=== PATIENT | male | born 1990 | race Caucasian/White ===

== ENCOUNTER 2023-04-23 19:50 | Emergency (ER) | payer OTHER, SELFPAY ==
[2023-04-23 19:56] VITALS: BP 141/83; PULSE 116; RESP 18; TEMP 37.8; O2SAT 96; BMI 25.8
--- NOTE | 2023-04-23 20:30 | CRLHL7_ITS ---
For Patients: As a result of the Century Cures Act, medical imaging exams and procedure reports are released immediately into your electronic medical record. You may view this report before your referring provider. If you have questions, please contact your health care provider. INDICATION: Right lower quadrant pain TECHNIQUE: Axial images were obtained from the diaphragm to the pubic symphysis. Reformats were obtained in the coronal and sagittal plane. IV Contrast: 89 cc Isovue 370 Oral Contrast: None COMPARISON: None. FINDINGS: Lower chest: Unremarkable. Liver: Unremarkable. Normal in size and attenuation. No masses. Gallbladder and bile ducts: Unremarkable. No stones or inflammation. No biliary dilatation. Spleen: Unremarkable. Normal in size without mass. Pancreas: Unremarkable. No mass or inflammation. Adrenal glands: Unremarkable. No nodules. Kidneys: Unremarkable. No masses, stones, or hydronephrosis. Vasculature: Unremarkable. GI tract: The stomach is unremarkable. No dilated loops of large or small intestine. Normal appendix. Pelvis: Unremarkable. Bones: Unremarkable for age. IMPRESSION: Unremarkable abdomen and pelvis CT. No dilated bowel or localized inflammation. Please note that all CT scans at this facility use dose modulation, iterative reconstruction, and/or weight-based dosing when appropriate to reduce radiation dose to as low as reasonably achievable. Dictated by Hermann Espana MD @ 04/23/2023 9:02:11 PM (Electronically Signed)
--- NOTE | 2023-04-23 20:31 | ED_ITS ---
HPI - Abdominal Pain General Time Seen by Provider: 20:31 Date Seen: 04/23/23 Chief Complaint: Abdominal Pain Stated Complaint: pain in waist/stomach Time Seen by Provider: 04/23/23 20:09 Source: patient, RN notes reviewed and old records reviewed Mode of arrival: ambulatory Limitations: no limitations History of Present Illness HPI narrative: 32-year-old male who comes in today with abdominal pain for the last 4 days. Low abdomen, somewhat migratory. Denies nausea, vomiting, diarrhea, urinary symptoms, fever, chills, cough, runny nose. Has not taken anything for this. Related Data Allergies Allergy/AdvReac Type Severity Reaction Status Date / Time No Known Drug Allergies Allergy Verified 04/23/23 20:08 Exam Narrative: Exam Narrative: General: Well-developed and well-nourished, no acute distress Head: Atraumatic and normocephalic Eyes: Pupils are equal reactive, extraocular motions intact, conjunctiva clear ENT: External nose and ears are normal, posterior pharynx without erythema or exudate Neck: No midline cervical tenderness, full spontaneous range of motion the neck, trachea midline, no adenopathy Heart: Regular rate and rhythm no murmurs or thrills Lungs: Clear to auscultation bilaterally without wheezes or crackles Abdomen: Soft, right lower quadrant and right mid abdominal tenderness, nondistended with active bowel sounds Musculoskeletal: No tenderness, deformity, or edema Neurologic: Awake, alert, and oriented x3, no gross focal neurologic deficits, cranial nerves intact as tested Psych: Mood and affect are appropriate Skin: No rashes Const: Vital Signs, click to edit/add: Vital Signs - 24 hr 04/23/23 19:56 Temperature 100.0 F H Pulse Rate [Left P ulse Oximeter] 116 H Respiratory Rate 18 Blood Pressure [Ri ght Upper Arm] 141/83 H Pulse Oximetry 96 Oxygen Delivery Me thod Room Air Course Course ED Course: Patient seen and examined, prior records reviewed. Patient presents today with low abdominal pain going on for the last several days. Migratory but mostly on the right side. He does have some mild right lower quadrant right lateral abdominal tenderness. He is also tachycardic with borderline fever. Labs and CT scan are ordered, fluids and Toradol ordered Reevaluation(s) Time of Reevaluation #1: 21:05 Reevaluation #1: CT independently interpreted by me negative for acute findings. Labs ordered and independently interpreted by me with normal CBC, no leukocytosis, normal lactate. Time of Reevaluation #2: 21:37 Reevaluation #2: Labs and middle interpreted by me with normal basic metabolic panel, normal lipase, normal hepatic panel, normal urinalysis. No definite etiology for patient's abdominal pain found today but with migratory pain, minimal tenderness, and reassuring laboratory and radiographic evaluation today, no acute emergent conditions found. Stable for discharge. Vital Signs Vital signs: Initial Vital Signs Temperature 100.0 F H 04/23/23 19:56 Temperature Source Temporal Artery Scan 04/23/23 19:56 Pulse Rate 116 H 04/23/23 19:56 Pulse Rhythm Regular 04/23/23 19:56 Respiratory Rate 18 04/23/23 19:56 Blood Pressure 141/83 H 04/23/23 19:56 Blood Pressure Mean 102 04/23/23 19:56 Blood Pressure Position Sitting 04/23/23 19:56 Pulse Oximetry 96 04/23/23 19:56 Oxygen Delivery Method Room Air 04/23/23 19:56 Vital Signs Temperature 100.0 F H 04/23/23 19:56 Pulse Rate 116 H 04/23/23 19:56 Respiratory Rate 18 04/23/23 19:56 Blood Pressure 141/83 H 04/23/23 19:56 Pulse Oximetry 96 04/23/23 19:56 Oxygen Delivery Method Room Air 04/23/23 19:56 Temperature 100.0 F H 04/23/23 19:56 Pulse Rate 116 H 04/23/23 19:56 Respiratory Rate 18 04/23/23 19:56 Blood Pressure 141/83 H 04/23/23 19:56 Pulse Oximetry 96 04/23/23 19:56 Oxygen Delivery Method Room Air 04/23/23 19:56 MDM - Abdominal Pain Lab Data Labs: Lab Results 04/23/23 04/23/23 Range/Units 20:30 20:56 WBC 5.25 (4.50-11.00) K/uL RBC 5.26 (4.30-5.90) m/uL Hgb 15.9 (13.5-17.5) gm/dL Hct 47.3 (37.0-53.0) % MCV 90 (80-100) fL MCH 30 (26-34) pg MCHC 34 (32-36) gm/dL RDW Coeff of Danielle 11.6 (11.5-15.5) % Plt Count 182 (140-440) K/uL Neut % (Auto) 58.4 (42.0-72.0) % Lymph % (Auto) 29.1 (20-44) % [place] % (Auto) 8.8 (0.0-11.0) % Eos % (Auto) 2.5 (0.0-7.0) % Baso % (Auto) 1.0 (0.0-3.0) % Neut # (Auto) 3.07 (1.7-7.0) K/uL Lymph # (Auto) 1.53 (0.90-2.90) K/uL [place] # (Auto) 0.50 (0.00-0.90) K/UL Eos # (Auto) 0.13 (0.00-0.50) K/uL Baso # (Auto) 0.05 (0.00-0.30) K/uL Abs Immat Gran (auto) 0.01 (0.00-0.30) K/uL Imm/Tot Granulo (auto) 0.2 % Sodium 138 (135-149) mmol/L Potassium 4.1 (3.6-5.1) mmol/L Chloride 103 (96-114) mmol/L Carbon Dioxide 27 (20-32) mmol/L Anion Gap 8 (7-15) mEq/L BUN 13 (5-24) mg/dL Creatinine 1.2 (0.5-1.5) mg/dL Estimated Creat Clear 91.25 Estimated GFR 82 ml/min Glucose 101 (60-115) mg/dL Lactate 0.9 (0.5-1.9) mmol/L Calcium 9.5 (8.4-10.6) mg/dL Total Bilirubin 0.6 (0.1-1.5) mg/dL Direct Bilirubin 0.1 (0.0-0.5) mg/dL AST 32 (12-35) U/L ALT 25 (4-50) U/L Alkaline Phosphatase 53 (40-150) U/L Total Protein 7.7 (6.0-8.3) g/dL Albumin 4.8 (3.3-5.0) g/dL Lipase 151 (23-300) U/L Urine Color Yellow (Yellow) Urine Appearance Clear (Clear) Urine pH 6.0 (5.0-8.5) Ur Specific [place] 1.015 (1.000-1.030) Urine Protein Negative (Negative) Urine Glucose (UA) Negative (Negative) Urine Ketones 1+ A (Negative) Urine Blood Negative (Negative) Urine Nitrite Negative (Negative) Urine Bilirubin Negative (Negative) Urine Urobilinogen 0.2 (0.2-1.0) Ur Leukocyte Esterase Negative (Negative) Urine RBC 2-5 A (0-2) Urine WBC 2-5 (0-5) Ur Squamous Epith Cells None (None-Few) Urine Bacteria None (None) Discharge Plan Discharge Clinical Impression: Migratory abdominal pain Patient Disposition: Home, Self-Care Condition: Stable Instructions: Acute Abdominal Pain (DC) Additional Instructions: Liquid diet for 24 hours Tylenol or ibuprofen as needed for pain Activity Level: Activity as Tolerated Discharge Diet: Regular Follow Up/Referrals: Provider,Not a Local [Primary Care Provider] - Stand Alone Forms: Fatigue Scienceth Info Instructions
[2023-04-23 20:46] LABS: Lactate* 0.9 mmol/L (0.5-1.9)
[2023-04-23 21:01] LABS: Basophils Absolute Auto 0.05 K/uL (0.00-0.30); Eosinophils Absolute Auto 0.13 K/uL (0.00-0.50); Eosinophils Percent Auto 2.5 % (0.0-7.0); Hematocrit 47.3 % (37.0-53.0); Hemoglobin* 15.9 gm/dL (13.5-17.5); Immature Granulocytes Abs Auto 0.01 K/uL (0.00-0.30); Immature Granulocytes Pct Auto 0.2 %; Lymphocytes Absolute Auto 1.53 K/uL (0.90-2.90); Lymphocytes Percent Auto 29.1 % (20-44); Mean Corpuscular HGB Conc 34 gm/dL (32-36); Mean Corpuscular Hemoglobin 30 pg (26-34); Mean Corpuscular Volume 90 fL (80-100); Monocytes Percent Auto 8.8 % (0.0-11.0); Neutrophils Absolute Auto 3.07 K/uL (1.7-7.0); Neutrophils Percent Auto 58.4 % (42.0-72.0); Platelet Count* 182 K/uL (140-440); RDW Coefficient of Variation % 11.6 % (11.5-15.5); Red Blood Count 5.26 m/uL (4.30-5.90); Slide Review Reflex No; White Blood Count* 5.25 K/uL (4.50-11.00)
[2023-04-23 21:03] LABS: Appearance Urine Clear (Clear); Bilirubin Urine Negative (Negative); Blood Urine Negative (Negative); Color Urine Yellow (Yellow); Glucose Urine Negative (Negative); Ketones Urine 1+ (Negative); Leukocyte Esterase Urine Negative (Negative); Nitrite Urine Negative (Negative); Protein Urine Negative (Negative); Specific Gravity Urine 1.015 (1.000-1.030); Urobilinogen Urine 0.2 (0.2-1.0)
[2023-04-23 21:22] LABS: Albumin* 4.8 g/dL (3.3-5.0); Chloride* 103 mmol/L (96-114)
[2023-04-23 21:23] LABS: Potassium* 4.1 mmol/L (3.6-5.1); Sodium* 138 mmol/L (135-149)
[2023-04-23 21:25] LABS: Anion Gap 8 mEq/L (7-15); Aspartate Amino Transferase* 32 U/L (12-35); Bilirubin Direct* 0.1 mg/dL (0.0-0.5); Bilirubin Total* 0.6 mg/dL (0.1-1.5); Blood Urea Nitrogen* 13 mg/dL (5-24); Carbon Dioxide* 27 mmol/L (20-32); Creatinine* 1.2 mg/dL (0.5-1.5); Est. Creatinine Clearance* 91.25; Estimated Glomerular Filt Rate 82 ml/min; Glucose* 101 mg/dL (60-115); Total Protein* 7.7 g/dL (6.0-8.3)
[2023-04-23 21:26] LABS: Alanine Aminotransferase* 25 U/L (4-50); Alkaline Phosphatase* 53 U/L (40-150); Calcium* 9.5 mg/dL (8.4-10.6); Lipase* 151 U/L (23-300)
== END 2023-04-23 21:50 | disposition home or self-care (01) ==
PROVIDERS: Emergency Provider Family Medicine
DX: R10.9 Unspecified abdominal pain (principal)
CPT/HCPCS: 36415; 74177; 80048; 80076; 81001; 83605; 83690; 85025; 99284; 99285; Q9967